=== PATIENT | female | born 1975 | race Caucasian/White ===

== ENCOUNTER 2017-10-24 20:34 | Emergency (ER) | payer OTHER, MEDICAID ==
[2017-10-24 20:35] VITALS: BP 132/84; PULSE 81; RESP 14; TEMP 98.5; O2SAT 97
[2017-10-24] MEDS ORDERED: SERT-129 PO (22:41)
--- NOTE | 2017-10-24 23:05 | PD ---
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 She states that the source patient is known. She states that she worked yesterday and it was too busy to check in to be evaluated for her needlestick. She went home and came back today worked her shift and then came into the ER after the end of her shift for evaluation of her needlestick. The source patient has agreed to undergo HIV testing. She states that the patient is a male transgender who now is a female. She is concerned that he may be high risk. He denies HIV or hepatitis. Patient is up-to-date with her hepatitis B as well as her tetanus immunization. The patient states that she was stuck in the right index fingertip by the heparin syringe as she was attempting to throw it out and the needle box. She states that the Came off as she was putting into the needle box and poked the tip of her finger. She states that it only had gone in to professionally. She was wearing gloves at the time. The patient discharged nurse has been made aware of the situation and the source patient's blood is allegedly being checked for HIV. The patient has cleansed the wound with soap and water. She has no medical complaints. [facility] Past Medical History Depression: Yes Diminished Hearing: No Tetanus Vaccination: < 5 Years Influenza Vaccination: Yes ?: Not LMP: 10/14/17 : 9 Para: 7 Miscarriage: 1 Dilation and Curettage (D&C): Yes (1999) Past Surgical History Narrative Surgical D&C Social History Alcohol Use: No Tobacco Use: No Substance Use: No Allergies-Medications (Allergen,Severity, Reaction): Coded Allergies: promethazine (Verified Allergy, Intermediate, 10/24/17) Uncoded Allergies: heredia (Allergy, Intermediate, 10/24/17) Reported Meds & Prescriptions Reported Meds & Active Scripts Active Reported Sertraline (Sertraline HCl) 100 Mg Tab 75 Mg PO DAILY Review of Systems Except as stated in HPI: all other systems reviewed are Neg Physical Exam Narrative GENERAL: This is a well-nourished, well-developed patient, in no apparent distress. SKIN: No rashes, ecchymoses or lesions. Warm and dry. HEAD: Atraumatic. Normocephalic. EYES: PERRL, EOMI, no discharge or injection. No scleral icterus. EARS: Clear NOSE: Nasal turbinates appear normal. THROAT: Mucosa pink and moist. Airway patent. NECK: Trachea midline. supple, moves head freely. LUNGS: Clear to auscultation. CV: Regular in rhythm. ABDOMEN: Soft nontender. EXT: No clubbing cyanosis or edema. There is a small puncture of the tip of the right index finger tip. No deep injury. No infection. Data Data Last Documented VS Vital Signs Date Time Temp Pulse Resp B/P (MAP) Pulse Ox O2 Delivery O2 Flow Rate FiO2 10/24/17 20:35 98.5 81 14 132/84 (100) 97 Room Air Orders Orders Ed Discharge Order (10/24/17 22:59) MDM Medical Decision Making Medical Screen Exam Complete: Yes Emergency Medical Condition: Yes Medical Record Reviewed: Yes Differential Diagnosis Differential diagnosis: Needlestick blood exposure, contusion, abrasion, hepatitis, HIV Narrative Course The source patient is known. They have agreed to have HIV testing. Patient is up-to-date with her hepatitis B and tetanus immunization. Needlestick protocol has been initiated. She'll be notified of the source patient's results by the charge nurse. At this time post exposure prophylaxis is not indicated. This is needlestick blood exposure Diagnosis Primary Impression: needlestick blood exposure Additional Instructions: Rest. Local wound care. Follow-up with employee med. Med/Other Pt SpecificInfo: No Meds Exist/No RX given Disposition: DISCHARGE HOME Condition: Stable Roderick Aranda Oct 24, 2017 23:05
== END 2017-10-24 23:32 | disposition home or self-care (01) ==
LOC: MERGE 20:34 → NEPD 20:34
DX: T14.8XXA Other injury of unspecified body region, initial encounter (principal); W46.1XXA Contact with contaminated hypodermic needle, initial encounter; Y93.F9 Activity, other caregiving; Y92.239 Unspecified place in hospital as the place of occurrence of the external cause; Y99.0 Civilian activity done for income or pay
CPT/HCPCS: 99282